=== PATIENT | female | born 1990 | race Two or more races ===

== ENCOUNTER 2024-03-12 14:59 | Emergency (ER) | payer BC, MEDICAID, SELFPAY ==
--- NOTE | 2024-03-12 15:10 | PC.NURSE ---
no answer in lobby when called for vital signs
--- NOTE | 2024-03-12 15:31 | PC.NURSE ---
no answer in lobby when called for vital signs
--- NOTE | 2024-03-12 15:57 | PC.NURSE ---
no answer in lobby when called for vital signs
== END 2024-03-12 15:57 | disposition left against medical advice (07) ==
PROVIDERS: Emergency Provider Emergency Medicine
DX: Z53.21 Procedure and treatment not carried out due to patient leaving prior to being seen by health care provider (principal)

== ENCOUNTER 2024-06-18 07:58 | Outpatient (RCR) | payer BC, MEDICAID, SELFPAY ==
[2024-06-11 08:15] VITALS: BP 107/71; PULSE 64; RESP 16; TEMP 36.6; O2SAT 100; BMI 29.6
[2024-06-11] MEDS: ferumoxytoL (NON-ESRD) 510 MG in SODIUM CHLORIDE 0.9% 100 ML 234 MG IV (08:45)
[2024-06-11 10:00] VITALS: BP 111/69; PULSE 70; RESP 16; TEMP 36.4; O2SAT 100
[2024-06-18 08:09] VITALS: BP 114/41; PULSE 79; RESP 16; TEMP 36.6; O2SAT 100; BMI 29.7
[2024-06-18] MEDS: ferumoxytoL (NON-ESRD) 510 MG in SODIUM CHLORIDE 0.9% 100 ML 234 MG IV (08:43)
[2024-06-18 09:20] VITALS: BP 107/63; PULSE 71; RESP 17; TEMP 36.4; O2SAT 100
== END 2024-06-28 23:59 | disposition home or self-care (01) ==
LOC: SFLEX 07:58
PROVIDERS: PCP Internal Medicine; Referring Provider Internal Medicine; Visit Provider Internal Medicine
PROC: (CPT 96365; principal; 2024-06-11 08:00)
DX: D50.8 Other iron deficiency anemias (principal)
CPT/HCPCS: 96365; J7050; Q0138